=== PATIENT | male | born 1985 | race Caucasian/White ===

== ENCOUNTER 2024-04-30 22:57 | Emergency (ER) | payer SELFPAY ==
[~2024-04-30] VITALS: Ht 182.9 cm; Wt 103.0 kg
[2024-04-30 23:13] VITALS: BP 115/97; PULSE 78; RESP 18; TEMP 37; O2SAT 96
== END 2024-05-01 00:09 | disposition left against medical advice (07) ==
LOC: ER 23:09
DX: R46.2 Strange and inexplicable behavior (principal)
CPT/HCPCS: 99283